=== PATIENT | male | born 1995 | race Caucasian/White ===

== ENCOUNTER 2017-02-04 15:55 | Emergency (ER) | payer OTHER ==
[~2017-02-04] VITALS: Ht 162.6 cm; Wt 121.4 kg
[~2017-02-04 15:55] MED LIST: BENADRYL25 M2 PO; CEPHALEXIN500 M1 PO; CHOLESTEROL MED; CLARITIN 1010 MG/TAB PO; Dilantin PO; ESCITALOPRAM PO; KEPPRA 500MG500 MG PO; KEPPRA1000 MG PO; LAMICTAL 100MG100 MG PO; LAMICTAL XR50 MG PO; LAMICTAL150 MG PO; LIPITOR20 MG PO; LORAINT PO; NO HOME MEDICATIONS; OTC ALLERGY MED; PRINIVIL20 MG PO; SEPTRA DS 8001 TAB PO; VALIUM 10MG10 MG/TAB PO; VALIUM 5MG T5 MG/TAB PO; ZYRTEC5 MG
[2017-02-04 16:03] VITALS: TEMP 97.5
[2017-02-04 16:41] LABS: BASO # 0.1 (0.0-0.2); BASO % 0.7 % (0.0-2.0); EOS # 0.1 (0.0-0.7); EOS % 0.5 % (0-4.0); GRAN # 9.8 (1.4-6.5); GRAN % 79.8 % (42.2-75.2); HEMATOCRIT 45.7 % (42.0-52.0); HEMOGLOBIN 15.8 g/dl (13.5-18.0); LYMPH # 1.6 (1.2-3.4); LYMPH % 12.8 % (20.0-51.0); MEAN CELL VOLUME 85 fl (80.0-100.0); MEAN CORPUSCULAR HEMOGLOBIN 29 pg (27.0-31.0); MEAN CORPUSCULAR HGB CONC 35 g/dl (33.0-37.0); MEAN PLATELET VOLUME 9.3 fl (7.4-10.4); MONO # 0.7 (0.1-0.6); MONO % 5.5 % (1.7-9.3); PLATELET COUNT 430 K/mm3 (130-400); REDCELL DISTRIBUTION WIDTH-CV 12.4 % (11.5-14.5); WHITE BLOOD COUNT 12.3 K/mm3 (4.8-10.8)
[2017-02-04 16:51] LABS: ADJUSTED CALCIUM 8.6 mg/dL (8.4-10.2); ALBUMIN 4.6 gm/dL (3.5-5.0); BILIRUBIN,TOTAL 1.1 mg/dL (0.0-1.0); CALCIUM 9.1 mg/dL (8.4-10.2); CREATININE, serum 0.94 mg/dL (0.66-1.25); TOTAL PROTEIN 8.2 gm/dL (6.4-8.2)
[2017-02-04 18:36] VITALS: BP 128/74; PULSE 91
== END 2017-02-04 18:51 | disposition home or self-care (01) ==
LOC: COL.ER 15:55
PROVIDERS: Emergency Medicine
DX: G40.209 Localization-related (focal) (partial) symptomatic epilepsy and epileptic syndromes with complex partial seizures, not intractable, without status epilepticus (principal)
CPT/HCPCS: J1953; J2060; J7030

== ENCOUNTER 2017-06-07 07:36 | Emergency (ER) | payer OTHER ==
[~2017-06-07] VITALS: Ht 162.6 cm; Wt 118.2 kg
[2017-06-07 07:40] VITALS: TEMP 97.9
[2017-06-07] MEDS ORDERED: KEPPRA1000 MG PO (08:01)
[2017-06-07] MEDS ORDERED: LAMICTAL150 MG PO (08:03)
[2017-06-07 08:15] LABS: BASO # 0.1 (0.0-0.2); BASO % 1.1 % (0.0-2.0); EOS # 0.5 (0.0-0.7); EOS % 4.7 % (0-4.0); GRAN # 5.7 (1.4-6.5); GRAN % 58.2 % (42.2-75.2); HEMATOCRIT 46.5 % (42.0-52.0); HEMOGLOBIN 16.2 g/dl (13.5-18.0); LYMPH # 2.8 (1.2-3.4); MEAN CELL VOLUME 86 fl (80.0-100.0); MEAN CORPUSCULAR HEMOGLOBIN 30 pg (27.0-31.0); MEAN CORPUSCULAR HGB CONC 35 g/dl (33.0-37.0); MEAN PLATELET VOLUME 9.7 fl (7.4-10.4); MONO # 0.7 (0.1-0.6); MONO % 6.7 % (1.7-9.3); PLATELET COUNT 384 K/mm3 (130-400); RED BLOOD COUNT 5.44 M/mm3 (4.20-5.60); WHITE BLOOD COUNT 9.7 K/mm3 (4.8-10.8)
[2017-06-07 08:26] LABS: ALBUMIN 4.7 gm/dL (3.5-5.0); BILIRUBIN,TOTAL 0.9 mg/dL (0.0-1.0); CALCIUM 9.6 mg/dL (8.4-10.2); CREATININE, serum 0.91 mg/dL (0.66-1.25); TOTAL PROTEIN 8.2 gm/dL (6.4-8.2)
[2017-06-07 08:42] LABS: PROLACTIN 22.9 ng/mL (3.7-17.9)
[2017-06-07 10:23] VITALS: BP 124/71; PULSE 82
== END 2017-06-07 10:14 | disposition home or self-care (01) ==
LOC: COL.ER 07:36
PROVIDERS: Emergency Medicine
DX: G40.909 Epilepsy, unspecified, not intractable, without status epilepticus (principal); Z98.890 Other specified postprocedural states
CPT/HCPCS: J1953; J2060; J2550

== ENCOUNTER 2017-07-04 17:23 | Emergency (ER) | payer OTHER ==
[~2017-07-04] VITALS: Ht 162.6 cm; Wt 112.7 kg
[2017-07-04 17:29] VITALS: BP 138/71; TEMP 98.2
[2017-07-04 18:02] LABS: BASO # 0.1 (0.0-0.2); BASO % 0.8 % (0.0-2.0); EOS # 0.3 (0.0-0.7); EOS % 2.9 % (0-4.0); GRAN # 6.4 (1.4-6.5); GRAN % 66.2 % (42.2-75.2); HEMATOCRIT 45.6 % (42.0-52.0); HEMOGLOBIN 16.2 g/dl (13.5-18.0); MEAN CELL VOLUME 85 fl (80.0-100.0); MEAN CORPUSCULAR HEMOGLOBIN 30 pg (27.0-31.0); MEAN CORPUSCULAR HGB CONC 36 g/dl (33.0-37.0); MEAN PLATELET VOLUME 9.5 fl (7.4-10.4); MONO # 0.8 (0.1-0.6); MONO % 8.5 % (1.7-9.3); PLATELET COUNT 380 K/mm3 (130-400); RED BLOOD COUNT 5.37 M/mm3 (4.20-5.60); REDCELL DISTRIBUTION WIDTH-CV 11.9 % (11.5-14.5); WHITE BLOOD COUNT 9.7 K/mm3 (4.8-10.8)
[2017-07-04 18:10] LABS: ADJUSTED CALCIUM 9.1 mg/dL (8.4-10.2); ALBUMIN 4.7 gm/dL (3.5-5.0); BILIRUBIN,TOTAL 0.8 mg/dL (0.0-1.0); CALCIUM 9.7 mg/dL (8.4-10.2); CREATININE, serum 0.92 mg/dL (0.66-1.25); POTASSIUM 4.1 mmol/L (3.4-5.0); TOTAL PROTEIN 8.4 gm/dL (6.4-8.2)
[2017-07-04 18:58] VITALS: PULSE 83
== END 2017-07-04 18:54 | disposition home or self-care (01) ==
LOC: COL.ER 17:23
PROVIDERS: Emergency Medicine
DX: G40.909 Epilepsy, unspecified, not intractable, without status epilepticus (principal); R41.82 Altered mental status, unspecified; I10 Essential (primary) hypertension
CPT/HCPCS: J1953; J2060; J7030

== ENCOUNTER 2017-07-04 19:11 | Emergency (ER) | payer OTHER ==
[~2017-07-04] VITALS: Ht 162.6 cm; Wt 113.6 kg
[2017-07-04 19:42] VITALS: BP 121/63; TEMP 97.1
[2017-07-04 21:47] VITALS: PULSE 86
== END 2017-07-04 21:47 | disposition home or self-care (01) ==
LOC: COL.ER 19:11
DX: G40.909 Epilepsy, unspecified, not intractable, without status epilepticus (principal); I10 Essential (primary) hypertension
CPT/HCPCS: J1953; J2060; J7030

== ENCOUNTER 2017-11-27 20:04 | Emergency (ER) | payer BC ==
[~2017-11-27] VITALS: Ht 162.6 cm; Wt 111.8 kg
[2017-11-27 20:08] VITALS: TEMP 98.5
[2017-11-27 22:00] VITALS: BP 134/73; PULSE 101
== END 2017-11-27 22:06 | disposition home or self-care (01) ==
LOC: COL.ER 20:04
DX: G40.409 Other generalized epilepsy and epileptic syndromes, not intractable, without status epilepticus (principal)
CPT/HCPCS: J2060

== ENCOUNTER 2018-01-16 17:39 | Emergency (ER) | payer BC ==
[~2018-01-16] VITALS: Ht 162.6 cm; Wt 118.2 kg
[2018-01-16 17:41] VITALS: TEMP 98
[2018-01-16 18:01] LABS: BASO # 0.1 (0.0-0.2); BASO % 0.7 % (0.0-2.0); EOS # 0.3 (0.0-0.7); EOS % 2.7 % (0-4.0); GRAN # 8.3 (1.4-6.5); GRAN % 69.5 % (42.2-75.2); HEMATOCRIT 46.2 % (42.0-52.0); HEMOGLOBIN 15.9 g/dl (13.5-18.0); LYMPH # 2.2 (1.2-3.4); LYMPH % 18.6 % (20.0-51.0); MEAN CELL VOLUME 85 fl (80.0-100.0); MEAN CORPUSCULAR HEMOGLOBIN 29 pg (27.0-31.0); MEAN CORPUSCULAR HGB CONC 34 g/dl (33.0-37.0); MEAN PLATELET VOLUME 9.3 fl (7.4-10.4); MONO # 0.9 (0.1-0.6); MONO % 7.7 % (1.7-9.3); PLATELET COUNT 398 K/mm3 (130-400); RED BLOOD COUNT 5.44 M/mm3 (4.20-5.60); REDCELL DISTRIBUTION WIDTH-CV 11.9 % (11.5-14.5)
[2018-01-16 18:10] LABS: ALBUMIN 4.3 gm/dL (3.5-5.0); BILIRUBIN,TOTAL 0.6 mg/dL (0.0-1.0); CALCIUM 9.3 mg/dL (8.4-10.2); CREATININE, serum 0.79 mg/dL (0.66-1.25); POTASSIUM 4.5 mmol/L (3.4-5.0); TOTAL PROTEIN 8.4 gm/dL (6.4-8.2)
[2018-01-16 18:26] LABS: PROLACTIN 18.7 ng/mL (3.7-17.9)
[2018-01-16 19:03] VITALS: BP 136/76; PULSE 94
== END 2018-01-16 19:08 | disposition home or self-care (01) ==
LOC: COL.ER 17:39
PROVIDERS: Family Medicine
DX: G40.909 Epilepsy, unspecified, not intractable, without status epilepticus (principal)
CPT/HCPCS: J1953; J2060; J7030

== ENCOUNTER 2018-07-01 06:31 | Emergency (ER) | payer BC ==
[~2018-07-01] VITALS: Ht 162.6 cm; Wt 115.9 kg
[2018-07-01 06:36] VITALS: TEMP 98.5
[2018-07-01 07:15] LABS: COLLECTION METHOD CLEAN CATCH
[2018-07-01 07:20] LABS: BASO # 0.1 (0.0-0.2); BASO % 0.9 % (0.0-2.0); EOS # 0.4 (0.0-0.7); EOS % 3.2 % (0-4.0); GRAN # 9.1 (1.4-6.5); GRAN % 65.3 % (42.2-75.2); HEMATOCRIT 44.7 % (42.0-52.0); HEMOGLOBIN 15.9 g/dl (13.5-18.0); LYMPH # 3.1 (1.2-3.4); LYMPH % 22.6 % (20.0-51.0); MEAN CELL VOLUME 83 fl (80.0-100.0); MEAN CORPUSCULAR HEMOGLOBIN 30 pg (27.0-31.0); MEAN CORPUSCULAR HGB CONC 36 g/dl (33.0-37.0); MEAN PLATELET VOLUME 9.3 fl (7.4-10.4); MONO % 6.8 % (1.7-9.3); PLATELET COUNT 434 K/mm3 (130-400); RED BLOOD COUNT 5.36 M/mm3 (4.20-5.60); REDCELL DISTRIBUTION WIDTH-CV 12.2 % (11.5-14.5)
[2018-07-01 07:31] LABS: MUCOUS Present /lpf; PH 5 (5-8); URINE APPEARANCE Cloudy; URINE BACTERIA None Seen /hpf; URINE BILIRUBIN Negative (NEGATIVE); URINE BLOOD 3+ (NEGATIVE); URINE COLOR Amber; URINE GLUCOSE Negative (NEGATIVE); URINE KETONE Negative (NEGATIVE); URINE LEUKOCYTE ESTERASE Negative (NEGATIVE); URINE NITRATE Negative (NEGATIVE); URINE PROTEIN(semi-quant) 1+ (NEGATIVE); URINE RBC >50 /hpf; URINE UROBILINOGEN Negative (NEGATIVE)
[2018-07-01 07:32] LABS: ALBUMIN 4.4 gm/dL (3.5-5.0); BILIRUBIN,TOTAL 0.4 mg/dL (0.0-1.0); C-REACTIVE PROTEIN 1.2 mg/dL (0.0-0.9); CALCIUM 9.3 mg/dL (8.4-10.2); CREATININE, serum 1.17 mg/dL (0.66-1.25); POTASSIUM 4.2 mmol/L (3.4-5.0)
[2018-07-01] MEDS ORDERED: NORCO 325 MG-51 TAB PO (08:20)
[2018-07-01 08:37] VITALS: BP 122/86; PULSE 86
== END 2018-07-01 08:38 | disposition home or self-care (01) ==
LOC: COL.ER 06:31
PROVIDERS: Family Medicine
DX: N20.1 Calculus of ureter (principal); G40.909 Epilepsy, unspecified, not intractable, without status epilepticus
CPT/HCPCS: J1170; J1885; J2405; J7030; Q9967

== ENCOUNTER 2018-09-07 22:26 | Emergency (ER) | payer BC ==
[~2018-09-07] VITALS: Ht 162.6 cm; Wt 104.5 kg
[~2018-09-07 22:26] MED LIST changes: +NORCO 325 MG-51 TAB PO
[2018-09-07 23:14] LABS: BASO # 0.1 (0.0-0.2); BASO % 0.7 % (0.0-2.0); EOS # 0.2 (0.0-0.7); EOS % 1.9 % (0-4.0); GRAN # 6.5 (1.4-6.5); GRAN % 63.3 % (42.2-75.2); HEMATOCRIT 45.1 % (42.0-52.0); HEMOGLOBIN 15.5 g/dl (13.5-18.0); LYMPH # 2.4 (1.2-3.4); LYMPH % 23.8 % (20.0-51.0); MEAN CELL VOLUME 86 fl (80.0-100.0); MEAN CORPUSCULAR HEMOGLOBIN 30 pg (27.0-31.0); MEAN CORPUSCULAR HGB CONC 34 g/dl (33.0-37.0); MEAN PLATELET VOLUME 9.7 fl (7.4-10.4); MONO % 9.4 % (1.7-9.3); PLATELET COUNT 349 K/mm3 (130-400); RED BLOOD COUNT 5.23 M/mm3 (4.20-5.60); REDCELL DISTRIBUTION WIDTH-CV 12.4 % (11.5-14.5)
[2018-09-07 23:20] LABS: ALBUMIN 4.3 gm/dL (3.5-5.0); BILIRUBIN,TOTAL 0.4 mg/dL (0.0-1.0); CALCIUM 9.4 mg/dL (8.4-10.2); CREATININE, serum 0.93 mg/dL (0.66-1.25); POTASSIUM 4.2 mmol/L (3.4-5.0); TOTAL PROTEIN 7.9 gm/dL (6.4-8.2)
[2018-09-07 23:36] LABS: PROLACTIN 11.8 ng/mL (3.7-17.9)
[2018-09-08 00:47] VITALS: BP 133/82; PULSE 93
== END 2018-09-08 00:47 | disposition home or self-care (01) ==
LOC: COL.ER 22:26
PROVIDERS: Emergency Medicine
DX: G40.909 Epilepsy, unspecified, not intractable, without status epilepticus (principal)
CPT/HCPCS: J1953; J2060

== ENCOUNTER 2018-11-27 17:55 | Emergency (ER) | payer BC ==
[~2018-11-27] VITALS: Ht 162.6 cm; Wt 104.5 kg
[2018-11-27 18:02] VITALS: TEMP 98.4
[2018-11-27 18:50] LABS: BASO # 0.1 (0.0-0.2); BASO % 0.5 % (0.0-2.0); EOS # 0.1 (0.0-0.7); EOS % 0.7 % (0-4.0); GRAN # 9.1 (1.4-6.5); GRAN % 78.8 % (42.2-75.2); HEMATOCRIT 47.1 % (42.0-52.0); HEMOGLOBIN 16.3 g/dl (13.5-18.0); LYMPH # 1.6 (1.2-3.4); LYMPH % 13.8 % (20.0-51.0); MEAN CELL VOLUME 84 fl (80.0-100.0); MEAN CORPUSCULAR HEMOGLOBIN 29 pg (27.0-31.0); MEAN CORPUSCULAR HGB CONC 35 g/dl (33.0-37.0); MEAN PLATELET VOLUME 9.8 fl (7.4-10.4); MONO # 0.7 (0.1-0.6); MONO % 5.7 % (1.7-9.3); PLATELET COUNT 434 K/mm3 (130-400); RED BLOOD COUNT 5.59 M/mm3 (4.20-5.60)
[2018-11-27 18:53] LABS: ALBUMIN 4.5 gm/dL (3.5-5.0); BILIRUBIN,TOTAL 0.4 mg/dL (0.0-1.0); CALCIUM 9.7 mg/dL (8.4-10.2); CREATININE, serum 0.87 mg/dL (0.66-1.25); MAGNESIUM 2.1 mg/dL (1.6-2.3); PHOSPHOROUS 3.9 mg/dL (2.5-4.5); POTASSIUM 4.5 mmol/L (3.4-5.0); TOTAL PROTEIN 8.4 gm/dL (6.4-8.2)
[2018-11-27 19:09] LABS: PROLACTIN 9.3 ng/mL (3.7-17.9)
[2018-11-27 20:55] VITALS: BP 111/73; PULSE 108
== END 2018-11-27 20:55 | disposition home or self-care (01) ==
LOC: COL.ER 17:55
PROVIDERS: Emergency Medicine
DX: G40.909 Epilepsy, unspecified, not intractable, without status epilepticus (principal)
CPT/HCPCS: J1953; J2060; J7030

== ENCOUNTER 2022-04-08 10:06 | Emergency (ER) | payer SELFPAY ==
[~2022-04-08] VITALS: Ht 162.6 cm; Wt 115.9 kg
[~2022-04-08 10:06] MED LIST changes: +KEPPRA250 MG PO; +TOPAMAX200 MG PO
[2022-04-08 10:23] VITALS: TEMP 97.1
[2022-04-08] MEDS ORDERED: FLEXERIL 1010 MG/TAB PO (11:16)
[2022-04-08 11:31] VITALS: BP 131/91; PULSE 96
== END 2022-04-08 11:33 | disposition home or self-care (01) ==
LOC: COL.ER 10:06
DX: M62.830 Muscle spasm of back (principal)

== ENCOUNTER 2023-07-27 17:35 | Emergency (ER) | payer BC ==
[~2023-07-27] VITALS: Ht 162.6 cm; Wt 111.4 kg
[~2023-07-27 17:35] MED LIST changes: +FLEXERIL 1010 MG/TAB PO; +KEPPRA750 MG PO; +PHENERGAN25 MG RC; +ZOFRAN ODT4 MG PO
[2023-07-27 17:43] VITALS: TEMP 98.7
[2023-07-27 18:31] VITALS: BP 151/92; PULSE 104
== END 2023-07-27 18:31 | disposition home or self-care (01) ==
LOC: COL.ER 17:35
DX: H10.9 Unspecified conjunctivitis (principal); E66.01 Morbid (severe) obesity due to excess calories; Z68.41 Body mass index [BMI] 40.0-44.9, adult

== ENCOUNTER 2023-10-19 17:32 | Emergency (ER) | payer BC ==
[~2023-10-19] VITALS: Ht 162.6 cm; Wt 111.4 kg
[2023-10-19 17:39] VITALS: TEMP 98
[2023-10-19] MEDS ORDERED: levETIRAcetam 100 ML IV ONE (18:15)
[2023-10-19 19:09] LABS: BASO # 0.1 K/mm3 (0.0-0.2); BASO % 1.2 % (0.0-2.0); EOS # 0.5 K/mm3 (0.0-0.7); EOS % 5.4 % (0.0-4.0); GRAN # 4.6 K/mm3 (1.4-6.5); GRAN % 48.7 % (42.2-75.2); HEMOGLOBIN 16.6 g/dl (13.5-18.0); LYMPH # 3.4 K/mm3 (1.2-3.4); LYMPH % 36.2 % (20.0-51.0); MEAN CELL VOLUME 88 fl (80.0-100.0); MEAN CORPUSCULAR HEMOGLOBIN 30 pg (27-31); MEAN CORPUSCULAR HGB CONC 34 g/dl (33.0-37.0); MEAN PLATELET VOLUME 9.7 fl (7.4-10.4); MONO # 0.8 K/mm3 (0.1-0.6); MONO % 8.1 % (1.7-9.3); PLATELET COUNT 347 K/mm3 (130-400); RED BLOOD COUNT 5.58 M/mm3 (4.20-5.60); REDCELL DISTRIBUTION WIDTH-CV 12.4 % (11.5-14.5)
[2023-10-19 19:23] LABS: COLLECTION METHOD CLEAN CATCH
[2023-10-19 19:32] LABS: ALBUMIN 4.2 gm/dL (3.5-5.0); BILIRUBIN,TOTAL 0.6 mg/dL (0.2-1.2); CALCIUM 9.8 mg/dL (8.4-10.2); CREATININE, serum 1.06 mg/dL (0.72-1.25); POTASSIUM 3.8 mmol/L (3.5-4.5); TOTAL PROTEIN 8.2 gm/dL (6.2-8.1)
[2023-10-19 19:52] LABS: URINE APPEARANCE Turbid (CLEAR/HAZY); URINE BLOOD Negative (NEGATIVE); URINE COLOR Yellow (YELLOW); URINE GLUCOSE Negative (NEGATIVE); URINE KETONE Negative (NEGATIVE); URINE NITRATE Negative (NEGATIVE); URINE PROTEIN(semi-quant) Negative (NEGATIVE)
[2023-10-19 19:53] LABS: URINE BACTERIA Many /hpf (NONE SEEN)
[2023-10-19 19:59] VITALS: BP 142/80; PULSE 87
== END 2023-10-19 21:56 | disposition home or self-care (01) ==
LOC: COL.ER 17:32
PROVIDERS: Physician Assistant
DX: G40.901 Epilepsy, unspecified, not intractable, with status epilepticus (principal); E66.9 Obesity, unspecified
CPT/HCPCS: J1953